=== PATIENT | male | born 1945 | race Caucasian/White ===

== ENCOUNTER → 2024-05-15 08:39 | Outpatient (REF) | payer OTHER, SELFPAY | LOC: RAD 08:39 | PROVIDERS: ATTENDING PHYSICIAN Physician Assistant | DX: I73.9 Peripheral vascular disease, unspecified (principal); I70.90 Unspecified atherosclerosis | CPT/HCPCS: 93880; 93922; 93925; 93978 ==

== ENCOUNTER → 2025-05-21 09:16 | Outpatient (REF) | payer OTHER, SELFPAY | LOC: DHVS 09:16 | PROVIDERS: ATTENDING PHYSICIAN Surgery Vascular Surgery | DX: I73.9 Peripheral vascular disease, unspecified (principal); I70.90 Unspecified atherosclerosis | CPT/HCPCS: 93922; 93978 ==